=== PATIENT | female | born 1980 | race Caucasian/White ===

== ENCOUNTER → 2020-05-21 | Outpatient (CLI) | payer OTHER ==
--- NOTE | 2020-05-21 16:39 | MAM ---
EXAM DESCRIPTION: 3D Diagnostic, Bilateral (accession [id number]), Breast,Left (accession [id number]): Ultrasound CLINICAL HISTORY: 39 yearsFemalebreast lump palpable mass lateral posterior left breast. Remote family history of breast cancer. Menarche age 13. Childbirth age 28. Menopause age 35. HRT less than 5 years ago. Lifetime risk of developing breast cancer (Tyrer-Cuzick model)(%): 11.1. COMPARISON: Baseline study at this facility. TECHNIQUE: Bilateral LM, CC, and MLO projection full-field images, digital tomosynthesis technique. Bilateral 2-D digital full-field images: LM, CC, and MLO projections. CAD available for 2-D images.. Transcutaneous scanning of the left breast utilizing wylie-scale and Doppler modes. Scanning performed by the heliotherapist ; remote by Dr. Church. FINDINGS: The breast parenchymal density pattern is: Scattered areas of fibroglandular density. No skin thickening or nipple retraction triangular skin marker were masses palpable lateral posterior left breast. A partially circumscribed partially since spiculated margin mass is visible at the 3:00 to 3:30 position of the left breast overlapping the pectoral muscle on the MLO image. Microcalcifications are seen within the mass. The mass is approximately 9 cm from the nipple. Skin mole marker also posterior inferior left breast. At the 9:00 to 9:30 position on the left breast in the middle third is a small nodular density on the posterior margin of the fibroglandular tissues without microcalcifications. Radiolucency seen on tomosynthesis images is suggestive of a lymph node. Possible intramammary lymph node middle third right breast. Not associated with microcalcifications. No new focal, stellate mass or density, focal asymmetry , and no suspicious microcalcifications right breast. Ultrasound: Scanning of the regions of interest lateral posterior third left breast and medial middle third left breast. Scanning 6 cm from the nipple at 3:00. Hypoechoic mass with irregular spiculated margins no circumscribed sclerotic margins. Vascular images. Transverse measurement is 10.4 x 11.8 mm. 11.2 mm superior to inferior. Posterior partial acoustic shadowing. On the medial aspect of the left breast middle third is a circumscribed hypoechoic mass measuring 2.6 x 2.9 mm not vascular. Central echogenicity suggestive of a lymph node. No distinct cyst, no fluid collections, no large calcifications in the scanned regions of the left breast. IMPRESSION: 1. BI-RADS Category 4: SUSPICIOUS - Subcategory 4B: Moderate Suspicion For Malignancy. 2. Tissue diagnosis is recommended if there are no clinical contraindications. The FINDINGS and follow up were discussed in person with the patient following the examination. Written communication explaining the IMPRESSION and follow-up, will be mailed to the patient and referring health care provider. CRITICAL COMMUNICATION: The critical value was communicated directly by Dr. Church in person, with Ms. Nellie Lake, [facility] Breast Business Operations Manager, at approximately 1445 hours, on May 21, 2020. Ms. Lake will communicate these results to [facility] breast care program, where patient is enrolled. CRITICAL COMMUNICATION: The critical value was communicated directly by Dr. Church via phone call, with LEONEL Fajardo, at approximately 1630 hours, on May 21, 2020. Electronically signed by: Kar Church MD 05/21/2020 4:37 PM CDT
== END ==
LOC: MAMMO 13:25
PROVIDERS: ATTEND Family Medicine
DX: N63.21 Unspecified lump in the left breast, upper outer quadrant (principal)
CPT/HCPCS: 76641; 77066; G0279